=== PATIENT | female | born 1960 | race Caucasian/White ===

== ENCOUNTER → 2016-04-05 | Outpatient (CLI) | payer MEDICAID ==
--- NOTE | 2016-04-05 10:36 | DX ---
DEXA Bone Mineral Densitometry Clinical Indications: Postmenopausal, back pain, history of falling, screening for osteoporosis Comparison: None Technique: Bone Mineral Densitometry (BMD) by Dual Energy X-Ray Absorptiometry (DEXA) was performed utilizing the [employer] scanner. The lumbar spine was evaluated in the AP projection. The bilat eral hips and forearm were evaluated in the AP projection. Vertebral fracture assessment was also pe rformed. AP Lumbar Spine: The L1, L2, L3 and L4 vertebral bodies were evaluated. BMD: 1.175 gm/cm2 T-score: -0.2 SD Z-score: 0.6 SD AP Left Hip: Neck BMD: 1.002gm/cm2 T-score: -0.3 SD Z-score: 0.7 SD AP Right Hip: Neck BMD: 1.040 gm/cm2 T-score: 0 SD Z-score: 1.0 SD AP Left Forearm, 03/15: BMD: 0.816 gm/cm2 T-score: -0.7 SD Z-score: -0.4 SD Vertebral Fracture Assessment: No significant fracture deformity. No prevertebral aortic calcificati on, significant marginal bone spurring, facet arthrosis, or intrinsic vertebral body sclerosis that would effect the accuracy of the lumbar spine BMD measurement. Conclusion: Considering the lowest measured site, the patient is normal and at low risk for fracture . The ten year FRAX risk for any major osteoporotic fracture is 4.6% and for a hip fracture is 0.1%. Any bone loss in this patient is probably related to aging or estrogen deficiency. To prevent osteoporosis and to promote the patient's bone density, the following recommendations shou ld be considered: 1. Pursue a regular regimen of weightbearing and muscle strengthening exercises in order to reduce t he risk of falls and fractures (as tolerated by the patient's general medical condition). 2. Ensure that daily dietary calcium uptake is maximized. 3. Consider checking the serum vitamin D level. Ensure that intake of vitamin D is 600 IU per day (fo r all ages through 70) . 4. Consider follow-up DEXA scan in two years to assess the rate of bone loss in this patient.
== END ==
LOC: BRMIMAGING 08:38
PROVIDERS: ATTEND Physician Assistant
DX: Z13.820 Encounter for screening for osteoporosis (principal); M54.9 Dorsalgia, unspecified; Z78.0 Asymptomatic menopausal state